=== PATIENT | female | born 1965 | race Caucasian/White ===

== ENCOUNTER 2022-06-25 12:50 | Outpatient (CLI) | payer OTHER, SELFPAY ==
--- NOTE | 2022-06-25 | ECG_ITS ---
Measurements Intervals [place] Rate: 63 P: -18 TX: 145 QRS: 35 QRSD: 91 T: 45 QT: 406 QTc: 417 Interpretive Statements SINUS RHYTHM NORMAL ECG NO PREVIOUS ECG AVAILABLE FOR COMPARISON Electronically Signed On 06-25-2022 14:22:03 CDT by Morales Forbes D.O.
== END 2022-06-25 12:51 | disposition home or self-care (01) ==
LOC: ANHCARD 13:02
PROVIDERS: PCP Emergency Medicine; Visit Provider Nurse Practitioner
DX: E66.9 Obesity, unspecified (principal)
CPT/HCPCS: 93005